=== PATIENT | female | born 1960 | race Caucasian/White ===

== ENCOUNTER 2017-07-12 07:41 | Outpatient (CLI) | payer OTHER ==
[~2017-07-12 07:41] MED LIST: AMBIEN10 MG PO; CAPOTEN100 MG PO; CIPRO750 MG PO; Colace 100MG PO; DILTIAZEM 24HR120 MG PO; GABAPENTIN800 MG PO; HUMULIN N100 UNIT/2 SUBCUTANEO; HYDRALAZINE HCL25 MG PO; HumaLOG 100 UNIT/1 M SUBCUTANEO; LOSARTAN POTASS25 MG PO; NEURONTIN PO; PERCOCET 5/3251 TAB PO; POM (MEDICAMENTO EN PO; XOPENEX0.63 MG/3 IH
== END 2017-07-12 08:00 | disposition home or self-care (01) ==
LOC: NUCLEAR 07:41
DX: I27.29 Other secondary pulmonary hypertension (principal); I20.0 Unstable angina; E78.2 Mixed hyperlipidemia
CPT/HCPCS: 78452; 93017; A9500; J1250

== ENCOUNTER 2017-08-10 11:11 | Outpatient (CLI) | payer OTHER | END 2017-08-10 11:31 | disposition home or self-care (01) | LOC: RAD 11:11 | DX: J91.8 Pleural effusion in other conditions classified elsewhere (principal); J45.40 Moderate persistent asthma, uncomplicated; J30.1 Allergic rhinitis due to pollen ==

== ENCOUNTER 2017-11-08 14:38 | Outpatient (CLI) | payer OTHER | END 2017-11-08 14:40 | disposition home or self-care (01) | LOC: LAB 14:38 | DX: A49.02 Methicillin resistant Staphylococcus aureus infection, unspecified site (principal) ==

== ENCOUNTER 2017-12-04 07:42 | Outpatient (CLI) | payer OTHER | END 2017-12-04 11:03 | disposition home or self-care (01) | LOC: NUCLEAR 07:42 | DX: E05.90 Thyrotoxicosis, unspecified without thyrotoxic crisis or storm (principal) | CPT/HCPCS: 78012; A9531 ==

== ENCOUNTER 2017-12-05 08:55 | Outpatient (CLI) | payer OTHER | END 2017-12-05 09:30 | disposition home or self-care (01) | LOC: NUCLEAR 08:55 | DX: E05.90 Thyrotoxicosis, unspecified without thyrotoxic crisis or storm (principal) | CPT/HCPCS: 78012; A9512 ==

== ENCOUNTER → 2017-12-18 | Outpatient (CLI) | payer OTHER | END | disposition home or self-care (01) | LOC: NUCLEAR 10:00 | DX: E05.90 Thyrotoxicosis, unspecified without thyrotoxic crisis or storm (principal) | CPT/HCPCS: 79005; A9517 ==

== ENCOUNTER 2018-01-01 22:03 | Emergency (ER) | payer OTHER ==
[~2018-01-01] VITALS: Ht 157.5 cm; Wt 99.8 kg
== END 2018-01-02 05:21 | disposition home or self-care (01) ==
LOC: ER 22:03
DX: J06.9 Acute upper respiratory infection, unspecified (principal); J11.1 Influenza due to unidentified influenza virus with other respiratory manifestations

== ENCOUNTER 2018-02-05 07:50 | Outpatient (CLI) | payer OTHER | END 2018-02-05 07:56 | disposition home or self-care (01) | LOC: SONOGRAMA 07:50 | DX: I13.2 Hypertensive heart and chronic kidney disease with heart failure and with stage 5 chronic kidney disease, or end stage renal disease (principal) ==

== ENCOUNTER 2018-03-21 14:39 | Emergency (ER) | payer OTHER ==
[~2018-03-21] VITALS: Ht 160 cm; Wt 85.7 kg
[2018-03-21] MEDS ORDERED: SINGULAIR10 MG (15:09)
== END 2018-03-21 18:22 | disposition home or self-care (01) ==
LOC: ER 14:39
DX: R51 Headache (principal); R53.1 Weakness; E03.8 Other specified hypothyroidism

== ENCOUNTER 2018-03-28 13:47 | Outpatient (CLI) | payer OTHER ==
[~2018-03-28 13:47] MED LIST changes: +SINGULAIR10 MG
== END 2018-03-28 13:52 | disposition home or self-care (01) ==
LOC: LAB 13:47
DX: E05.90 Thyrotoxicosis, unspecified without thyrotoxic crisis or storm (principal); E89.0 Postprocedural hypothyroidism; C73 Malignant neoplasm of thyroid gland

== ENCOUNTER 2018-07-24 12:05 | Outpatient (CLI) | payer OTHER | END 2018-07-24 12:20 | disposition home or self-care (01) | LOC: RAD 12:05 | DX: J30.1 Allergic rhinitis due to pollen (principal); J45.40 Moderate persistent asthma, uncomplicated; J91.8 Pleural effusion in other conditions classified elsewhere; R06.02 Shortness of breath ==

== ENCOUNTER 2019-03-03 14:12 | Emergency (ER) | payer OTHER ==
[~2019-03-03] VITALS: Ht 160 cm; Wt 103.9 kg
[2019-03-03] MEDS ORDERED: HUMALOG100 UNIT/1 (15:01)
[2019-03-03] MEDS ORDERED: LASIX20 MG (15:03)
[2019-03-03] MEDS ORDERED: ELIQUIS5 MG (15:03)
[2019-03-03] MEDS ORDERED: RAYOS5 MG (15:03)
[2019-03-03] MEDS ORDERED: ULTRAM50 MG (15:03)
[2019-03-03] MEDS ORDERED: DILTIAZEM 24HR240 MG (15:04)
== END 2019-03-03 19:09 | disposition home or self-care (01) ==
LOC: ER 14:12
DX: N39.0 Urinary tract infection, site not specified (principal); J45.998 Other asthma; T78.49XA Other allergy, initial encounter; X58.XXXA Exposure to other specified factors, initial encounter

== ENCOUNTER 2019-03-05 12:51 | Inpatient (IN) | payer OTHER ==
[~2019-03-05] VITALS: Ht 160 cm; Wt 102.1 kg
[~2019-03-05 12:51] MED LIST changes: +DILTIAZEM 24HR240 MG; +ELIQUIS5 MG; +HUMALOG100 UNIT/1; +LASIX20 MG; +RAYOS5 MG; +ULTRAM50 MG
[2019-03-05] MEDS ORDERED: TAPAZOLE10 MG (16:12)
[2019-03-07] MEDS ORDERED: PROPRANOLOL HCL20 MG PO (14:16)
[2019-03-07] MEDS ORDERED: OMEPRAZOLE20 MG PO (14:17)
[2019-03-07] MEDS ORDERED: ATORVASTATIN CA10 MG PO (14:17)
[2019-03-07] MEDS ORDERED: INSULIN SYRING1 EA25 (14:18)
[2019-03-07] MEDS ORDERED: ESCITALOPRAM OX20 MG PO (14:18)
== END 2019-03-15 14:47 | disposition home or self-care (01) | DRG 167 ==
LOC: ER 12:51 → MEDI 15:58 → SEC-K 15:58 → MEDI 17:10 → MEDJ 03-07 18:51
PROVIDERS: ADMIT Specialist
PROC: 4A12X4Z Monitoring of Cardiac Electrical Activity, External Approach (ICD-10-PCS; 2019-03-05)
PROC: 3E0F7GC Introduction of Other Therapeutic Substance into Respiratory Tract, Via Natural or Artificial Opening (ICD-10-PCS; 2019-03-05)
PROC: 4A033R1 Measurement of Arterial Saturation, Peripheral, Percutaneous Approach (ICD-10-PCS; 2019-03-05)
PROC: 0JBQ0ZZ Excision of Right Foot Subcutaneous Tissue and Fascia, Open Approach (ICD-10-PCS; principal; 2019-03-07)
PROC: B246ZZZ Ultrasonography of Right and Left Heart (ICD-10-PCS; 2019-03-08)
PROC: 8E0ZXY6 Isolation (ICD-10-PCS; 2019-03-09)
DX: J45.41 Moderate persistent asthma with (acute) exacerbation (principal); J44.1 Chronic obstructive pulmonary disease with (acute) exacerbation; D68.8 Other specified coagulation defects; E27.49 Other adrenocortical insufficiency; J45.42 Moderate persistent asthma with status asthmaticus; I11.9 Hypertensive heart disease without heart failure; E66.01 Morbid (severe) obesity due to excess calories; I48.0 Paroxysmal atrial fibrillation; E05.90 Thyrotoxicosis, unspecified without thyrotoxic crisis or storm; L97.512 Non-pressure chronic ulcer of other part of right foot with fat layer exposed; J11.1 Influenza due to unidentified influenza virus with other respiratory manifestations; I27.29 Other secondary pulmonary hypertension; E08.6 Diabetes mellitus due to underlying condition with other specified complications; E08.65 Diabetes mellitus due to underlying condition with hyperglycemia; E08.21 Diabetes mellitus due to underlying condition with diabetic nephropathy; I34.0 Nonrheumatic mitral (valve) insufficiency; I07.1 Rheumatic tricuspid insufficiency; B96.29 Other Escherichia coli [E. coli] as the cause of diseases classified elsewhere; B95.2 Enterococcus as the cause of diseases classified elsewhere; B96.89 Other specified bacterial agents as the cause of diseases classified elsewhere

== ENCOUNTER 2019-04-17 08:55 | Outpatient (CLI) | payer OTHER ==
[~2019-04-17 08:55] MED LIST changes: +ATORVASTATIN CA10 MG PO; +ESCITALOPRAM OX20 MG PO; +INSULIN SYRING1 EA25; +OMEPRAZOLE20 MG PO; +PROPRANOLOL HCL20 MG PO; +TAPAZOLE10 MG
== END 2019-04-17 09:12 | disposition home or self-care (01) ==
LOC: NUCLEAR 08:55
DX: M19.90 Unspecified osteoarthritis, unspecified site (principal); M06.9 Rheumatoid arthritis, unspecified
CPT/HCPCS: 78306; 78315; A9503